=== PATIENT | female | born 1975 | race Caucasian/White ===

== ENCOUNTER 2018-12-18 13:33 | Emergency (ER) | payer OTHER ==
[~2018-12-18] VITALS: Ht 175.3 cm; Wt 95.5 kg
[~2018-12-18 13:33] MED LIST: ALBUTEROL2.5 MG/3 M IH; CEFUROXIME; LORTAB 5/500 501 TAB PO; PHENERGAN W/CO120 M1 PO; PREDNISONE20 MG PO
[2018-12-18] MEDS ORDERED: BUPROPION XL450 MG PO (13:41)
[2018-12-18] MEDS ORDERED: LISINOPRIL10 MG PO (13:49)
[2018-12-18 14:34] VITALS: BP 126/82
== END 2018-12-18 14:34 | disposition home or self-care (01) ==
LOC: ED 13:33
DX: S60.022A Contusion of left index finger without damage to nail, initial encounter (principal); I10 Essential (primary) hypertension; W22.8XXA Striking against or struck by other objects, initial encounter; Y92.009 Unspecified place in unspecified non-institutional (private) residence as the place of occurrence of the external cause